=== PATIENT | female | born 1975 | race Caucasian/White ===

== ENCOUNTER → 2017-11-23 | Outpatient (CLI) | payer BC, OTHER ==
[2017-11-23 08:17] LABS: Cholesterol 216 mg/dL (<200); HDL Cholesterol 88 mg/dL (40-60); LDL Cholesterol,Calculated 112 mg/dL (0-99); Triglycerides 81 mg/dL (<150)
[2017-11-23 11:12] LABS: Progesterone 13.9 ng/mL
== END | disposition home or self-care (01) ==
LOC: LABWHC1 06:52
PROVIDERS: ATTEND Obstetrics & Gynecology
DX: E28.319 Asymptomatic premature menopause (principal)
CPT/HCPCS: 36415; 80061; 82670; 83001; 84144